=== PATIENT | female | born 1990 | race Caucasian/White ===

== ENCOUNTER → 2017-10-23 08:10 | Outpatient (CLI) | payer OTHER, MEDICAID, SELFPAY ==
--- NOTE | 2017-10-23 | DI.MRI.S_ITS ---
PROCEDURE: MR FOOT LT WO/W CON INDICATIONS: Left foot pain TECHNIQUE: Noncontrast sagittal T1 spin echo and T2 fast spin echo with fat saturation, long-axis T1 spin echo and T2 fast spin echo with fat saturation; short-axis T1 spin echo, proton density fast spin echo, and T2 fast spin echo with fat saturation through the forefoot. Post-contrast short axis, long axis, and sagittal T1 spin echo with fat saturation through the forefoot. COMPARISON: None. FINDINGS: Image quality: Excellent. Bones and joints: No suspicious osseous enhancement. No bone marrow contusions or metatarsal stress fractures. The sesamoid bones appear in expected positions, without internal edema. No metatarsophalangeal joint degeneration. No intraosseous lesions. Soft tissues: No suspicious soft tissue enhancement. The visualized plantar foot muscles demonstrate normal signal and bulk. Visualized flexor and extensor tendons appear intact, without tenosynovitis. The distal insertions of the peroneus brevis and longus tendons appear intact. The principal Lisfranc ligament appears intact. No soft tissue ganglion cysts or bursal fluid collections. Sagittal images demonstrate no evidence for plantar plate tears. IMPRESSION: Etiology of current symptoms is not found. No inflammation along the plantar fascia or plantar soft tissues elsewhere is seen. Marrow signal is normal, no sign of neuroma or ganglion cyst is found. Dictated by: Lm Chi M.D. on 10/23/2017 at 16:13 Approved by: Lm Chi M.D. on 10/23/2017 at 16:15
== END ==
PROVIDERS: PCP Nurse Practitioner Family; Visit Provider Specialist/Technologist Athletic Trainer
DX: M79.672 Pain in left foot (principal)
CPT/HCPCS: 73720; A9579

== ENCOUNTER → 2018-02-04 10:42 | Outpatient (CLI) | payer OTHER, MEDICAID, SELFPAY ==
[2018-02-04 11:23] LABS: Add Manual Diff / Slide Review NO; Basophils Percent Auto 0.2 % (0-2); Lymphocytes Percent Auto 32.9 % (25-40); Mean Corpuscular HGB Conc 33.3 % (30-36); Mean Corpuscular Hemoglobin 24.7 PG (26-34); Monocytes Percent Auto 5.3 % (3-14); Neutrophils Absolute Auto 3800 /uL (3000-5900); Neutrophils Percent Auto 61.6 % (50-75); Platelet Count 416 X10^3/uL (150-400); Red Blood Cell Count 4.47 X10^6/uL (4.0-5.2); Red Cell Distribution Width 15.2 % (11.6-14.8); White Blood Cell Count 6.2 X10^3/uL (4.5-11.0)
[2018-02-04 11:47] LABS: Iron 67 ug/dL (37-170)
[2018-02-04 12:01] LABS: Free T3, Triiodothyronine Free 3.92 pg/mL (2.77-5.27)
[2018-02-04 12:14] LABS: Thyroid Stimulating Hormone 0.28 uIU/mL (0.47-4.68)
[2018-02-04 18:22] LABS: Free T4, Direct Thyroxine 1.36 ng/dL (0.78-2.19)
[2018-02-05 09:03] LABS: Ferritin 8.8 ng/mL (6.27-137)
== END ==
PROVIDERS: PCP Internal Medicine; Visit Provider Internal Medicine
DX: R53.83 Other fatigue (principal); D64.9 Anemia, unspecified
CPT/HCPCS: 36415; 82728; 83540; 84439; 84443; 84481; 85025

== ENCOUNTER → 2019-09-05 10:58 | Outpatient (CLI) | payer OTHER, MEDICAID, SELFPAY ==
--- NOTE | 2019-09-05 | DI.US.S_ITS ---
LIMITED ULTRASOUND OF LEFT BREAST AND AXILLA: 09/05/2019 CLINICAL: Palpable left breast lump. No prior exams were available for comparison. Color flow and real-time ultrasound of the left breast 10-11 o'clock, and axilla regions were performed on the areas of interest. Razo scale images of the real-time examination were reviewed. There is a 3 cm x 1.6 cm x 2.6 cm oval mass with a circumscribed margin in the left breast at 10 o'clock posterior depth 7 cm from the nipple. This oval mass is hypoechoic with a well-defined boundary. This correlates as palpated. Color flow imaging demonstrates that there is no vascularity present. No enlarged lymph nodes were seen sonographically in the left axilla. IMPRESSION: SUSPICIOUS OF MALIGNANCY The 3 cm x 1.6 cm x 2.6 cm oval mass in the left breast resembles a fibroadenoma and is at a low suspicion for malignancy. An ultrasound guided biopsy is recommended. The findings were discussed with the patient at the conclusion of the study by Dr. Chi. This exam was interpreted at Station ID: [id number]. Electronically Signed By: Jamil martin/:09/05/2019 16:10:46 letter sent: Biopsy Required Ultrasound BI-RADS: 4a Low suspicion for malignancy
== END ==
PROVIDERS: PCP Family Medicine; Referring Provider Internal Medicine; Visit Provider Family Medicine
DX: R92.8 Other abnormal and inconclusive findings on diagnostic imaging of breast (principal); N63.22 Unspecified lump in the left breast, upper inner quadrant
CPT/HCPCS: 76642

== ENCOUNTER → 2019-09-15 08:37 | Outpatient (CLI) | payer OTHER, MEDICAID, SELFPAY ==
--- NOTE | 2019-09-15 | DI.US.S_ITS ---
ULTRASOUND GUIDED BIOPSY LEFT BREAST USING VACUUM DEVICE WITH MARKING DEVICE INSERTED AND POST ULTRASOUND IMAGIN09/15/2019 CLINICAL: Left breast mass. PATIENT CONSENT: Risks (minor bleeding, infection, vasovagal reaction and repeat procedure), benefits and alternatives were explained to the patient and written informed consent was obtained. Correlation is made to exams dated: 09/05/2019 [facility]. An ultrasound guided biopsy using real-time ultrasound was performed for the palpable 3 cm x 1.6 cm x 2.6 cm oval mass located in the left breast at 10 o'clock posterior depth 7 cm from the nipple. This was described on the previous ultrasound report. The skin was prepped in the usual manner. Local anesthetic was administered to the access site. A skin denilson was made in the breast. The abnormality was approached from the lateral aspect. A 13 gauge biopsy needle was placed adjacent to the abnormality under ultrasound guidance. Once the needle was documented to be in the correct location, eight specimens were obtained using the Mammotome biopsy system. A clip was inserted into the biopsy cavity. A sterile dressing was applied to the access site. Post procedure ultrasound imaging demonstrates the location device at the targeted area. The specimens were sent to the laboratory for pathological analysis. IMPRESSION: ULTRASOUND GUIDED BIOPSY BENIGN Ultrasound guided biopsy of the 3 cm x 1.6 cm x 2.6 cm mass in the left breast at 10 o'clock posterior depth 7 cm from the nipple was successful. Pathology indicates benign fibroadenoma (FA). Pathology results are concordant with imaging findings. Recommend returning to screening mammogram usually to commence at age 40 unless high risk. If the fibroadenoma is painful and uncomfortable surgical excision could be considered. This exam was interpreted at Station ID: [id number]. Jaron venegas,slc/:09/17/2019 15:21:32
--- NOTE | 2019-09-15 | PATH_ITS ---
[facility] Accession Number: [id number] . 01 Material submitted: . breast - LEFT BREAST 10:30 MASS . 01 Clinical history: . LEFT BREAST MASS . 02 Diagnosis: Left Breast Mass, 10:30 o'clock, Needle Core Biopsies: Fibroepithelial lesion, consistent with fibroadenoma. Negative for in situ or invasive carcinoma. MRV 09/16/2019 1326 Local . 02 Electronically signed: . Rodríguez Shah MD, PhD, Pathologist NPI- [id number] . 01 Gross description: . Received one formalin-filled container, labeled with the patient's name and designated left breast 10:30 mass. The specimen is received with a plastic filter in container, sample loose in container and consists of multiple pink-stewart to yellow-hunt, cylindrical-shaped portions of tissue which range in size from 0.2 x 0.2 x 0.2 cm to 0.7 x 0.2 x 0.2 cm. The specimen filtered, wrapped, and entirely submitted in one cassette. Collection date per requisition: 09/15/19. No collection time per container. Possible collection time per requisition: 09. Possible total fixation time: Approximately 11 hours. ([id number]) /Ethan 09/16/2019 0208 Local . 02 Pathologist provided ICD-10: D24.2 . 02 CPT . 597805 Performed at: 01 [facility] [address] [facility], [place], [place] [id number] MD Jamil Jeffers MD Phone: [phone] Performed at: 02 [facility] [address] [place], [place] [id number] MD Carmen Estrella MD Phone: [phone]
== END ==
PROVIDERS: PCP Family Medicine; Referring Provider Internal Medicine; Visit Provider Internal Medicine
DX: D24.2 Benign neoplasm of left breast (principal)
CPT/HCPCS: 19083

== ENCOUNTER → 2022-09-20 06:39 | Outpatient (CLI) | payer OTHER, MEDICAID, SELFPAY ==
[2022-09-20 08:26] LABS: Alanine Aminotransferase 19 IU/L (<35); Albumin 3.9 g/dL (3.5-5.0); Albumin Globulin Ratio 1.3 (1.0-2.8); Alkaline Phosphatase 81 U/L (38-126); Aspartate Aminotransferase 19 IU/L (14-36); BUN Creatinine Ratio 16.4 (6-22); Bilirubin Total 0.2 mg/dL (0.2-1.3); Blood Urea Nitrogen 9 mg/dL (7-17); Calcium 8.7 mg/dL (8.4-10.2); Carbon Dioxide 27 mmol/L (22-32); Chloride 103 mmol/L (98-107); Cholesterol 196 mg/dL (140-199); Estimated Glomerular Filt Rate > 60 mL/min (>60); Globulin 3.1 g/dL (1.7-4.1); Glucose 86 mg/dL (70-100); HDL Cholesterol 39 mg/dL (40-60); HEMOLYSIS < 15 (0-50); LDL Cholesterol Calculated 137 mg/dL (<100); Lipase 149 U/L (23-300); Potassium 3.9 mmol/L (3.4-5.1); Sodium 138 mmol/L (137-145); Triglycerides 99 mg/dL (35-150)
[2022-09-20 08:29] LABS: Add Manual Diff / Slide Review NO; Basophils Absolute Auto 0 /uL (0-100); Eosinophils Absolute Auto 0 /uL (0-450); Hematocrit 28.2 % (36-46); Hemoglobin 9.1 g/dL (12.0-16.0); Lymphocytes Absolute Auto 2400 /uL (1100-4500); Lymphocytes Percent Auto 34.7 % (25-40); Mean Corpuscular HGB Conc 32.4 % (30-36); Mean Corpuscular Hemoglobin 21.2 PG (26-34); Mean Corpuscular Volume 65.3 fL (80-100); Monocytes Absolute Auto 400 /uL (0-900); Monocytes Percent Auto 5.4 % (3-14); Neutrophils Absolute Auto 4100 /uL (1500-7000); Neutrophils Percent Auto 59.9 % (50-75); Platelet Count 421 X10^3/uL (150-400); Red Blood Cell Count 4.32 X10^6/uL (4.0-5.2); Red Cell Distribution Width 16.6 % (11.6-14.8); White Blood Cell Count 6.9 X10^3/uL (4.5-11.0)
[2022-09-20 08:50] LABS: Microcytosis 2+; Ovalocytes 1+
[2022-09-20 08:53] LABS: TSH w/ Reflex to FT4 1.51 uIU/mL (0.47-4.68)
[2022-09-21 15:51] LABS: x Labcorp Estim. Avg Glu (eAG) 123 mg/dL (.); x Labcorp Hemoglobin A1c 5.9 % (4.8-5.6)
== END ==
PROVIDERS: PCP Family Medicine; Referring Provider Family Medicine; Visit Provider Family Medicine
DX: E03.9 Hypothyroidism, unspecified (principal); E66.9 Obesity, unspecified; F32.A Depression, unspecified; F90.9 Attention-deficit hyperactivity disorder, unspecified type
CPT/HCPCS: 36415; 80053; 80061; 83036; 83690; 84443; 85025

== ENCOUNTER → 2022-10-23 12:07 | Outpatient (CLI) | payer OTHER, MEDICAID, SELFPAY ==
[2022-10-23 13:23] LABS: HEMOLYSIS < 15 (0-50); Iron 24 ug/dL (37-170)
[2022-10-23 13:31] LABS: Transferrin 336 mg/dL (206-381)
[2022-10-23 13:41] LABS: Percent Iron Saturation 5 % (15-50); Total Iron Binding Capacity 464 ug/dL (265-497)
[2022-10-23 13:51] LABS: Ferritin 10 ng/mL (6-137)
[2022-10-23 19:10] LABS: UR Morphine/Opiate cutoff 300 Negative (Negative); Ur Creatinine Normal (Normal); Ur Specific Gravity Normal (Normal); Urine Amphetamines Negative (Negative); Urine Barbiturates Negative (Negative); Urine Benzodiazepines Negative (Negative); Urine Cocaine Negative (Negative); Urine MDMA Negative (Negative); Urine Methadone Negative (Negative); Urine Methamphetamines Negative (Negative); Urine Oxycodone Negative (Negative); Urine Phencyclidine Negative (Negative); Urine Tetrahydrocannabinol Negative (Negative); Urine Tricyclic Antidepressant Negative (Negative); Urine pH Normal (Normal)
== END ==
PROVIDERS: PCP Family Medicine; Referring Provider Family Medicine; Visit Provider Family Medicine
DX: D64.9 Anemia, unspecified (principal); F90.9 Attention-deficit hyperactivity disorder, unspecified type
CPT/HCPCS: 36415; 80305; 82728; 83540; 83550

== ENCOUNTER → 2023-01-17 10:30 | Oncology outpatient (ONC) | payer OTHER, MEDICAID, SELFPAY ==
[2022-12-06 14:15] VITALS: BP 121/70; PULSE 87; RESP 16; TEMP 36.4
[2022-12-06] MEDS: IRON SUCROSE 300 MG in SODIUM CHLORIDE 0.9% 250 ML 132.5 MG IV (14:17)
--- NOTE | 2022-12-06 15:02 | PC.NURSE ---
ORDER CLARIFICATION This RN spoke w/ JO-ANN Calle from Dr. Patel's office. Per JO-ANN Calle: Pt is to receive 300mg Venofer in 250mls administered over 2 hours, once every 3 weeks, for a total of 3 doses.
[2022-12-27 10:46] VITALS: BP 109/60; PULSE 79; RESP 16; TEMP 36.4; O2SAT 99
[2022-12-27] MEDS: IRON SUCROSE 300 MG in SODIUM CHLORIDE 0.9% 250 ML 132.5 MG IV (11:06)
[2023-01-17 10:21] VITALS: BP 115/61; PULSE 97; RESP 16; TEMP 36.6; O2SAT 100
[2023-01-17] MEDS: IRON SUCROSE 300 MG in SODIUM CHLORIDE 0.9% 250 ML 132.5 MG IV (11:08)
== END ==
PROVIDERS: PCP Family Medicine; Referring Provider Family Medicine; Visit Provider Family Medicine
DX: D50.9 Iron deficiency anemia, unspecified (principal); K90.89 Other intestinal malabsorption
CPT/HCPCS: 96365; 96366; J1756

== ENCOUNTER → 2023-02-19 14:07 | Outpatient (CLI) | payer OTHER, MEDICAID, SELFPAY ==
[2023-02-19 15:59] LABS: Add Manual Diff / Slide Review NO; Basophils Absolute Auto 0 /uL (0-100); Basophils Percent Auto 0.1 % (0-2); Eosinophils Absolute Auto 0 /uL (0-450); Eosinophils Percent Auto 0.1 % (2-4); Hematocrit 37.1 % (36-46); Hemoglobin 12.4 g/dL (12.0-16.0); Lymphocytes Absolute Auto 2500 /uL (1100-4500); Lymphocytes Percent Auto 28.3 % (25-40); Mean Corpuscular HGB Conc 33.4 % (30-36); Mean Corpuscular Hemoglobin 26.5 PG (26-34); Mean Corpuscular Volume 79.4 fL (80-100); Monocytes Absolute Auto 400 /uL (0-900); Monocytes Percent Auto 4.4 % (3-14); Neutrophils Absolute Auto 6000 /uL (1500-7000); Neutrophils Percent Auto 67.1 % (50-75); Platelet Count 352 X10^3/uL (150-400); Red Blood Cell Count 4.67 X10^6/uL (4.0-5.2); Red Cell Distribution Width 24.3 % (11.6-14.8); White Blood Cell Count 8.9 X10^3/uL (4.5-11.0)
[2023-02-19 16:14] LABS: Microcytosis 2+
[2023-02-19 16:36] LABS: TSH w/ Reflex to FT4 1.95 uIU/mL (0.47-4.68)
== END ==
PROVIDERS: PCP Family Medicine; Referring Provider Family Medicine; Visit Provider Family Medicine
DX: D50.9 Iron deficiency anemia, unspecified (principal); E03.9 Hypothyroidism, unspecified; N94.6 Dysmenorrhea, unspecified
CPT/HCPCS: 36415; 84443; 85025

== ENCOUNTER 2023-02-27 12:00 | Day surgery (SDC) | payer OTHER, MEDICAID, SELFPAY ==
[2023-02-27 12:21] VITALS: BMI 35.5
[2023-02-27 12:34] VITALS: BP 109/67; PULSE 85; RESP 20; TEMP 37.1; O2SAT 98
[2023-02-27] MEDS: LACTATED RINGERS 1,000 ML 150 ML IV (12:36)
--- NOTE | 2023-02-27 13:27 | PM.HP.1 ---
History of Present Illness History of Present Illness Date Patient Seen: 02/27/23 Time Patient Seen: 13:27 Chief complaint: EGD & Colonoscopy w/poss bx's Narrative: 32-year-old woman with a history of iron-deficiency anemia here for diagnostic EGD and colonoscopy. Please refer to the H and P from December 2022 for further detail. No interval change in health. PFS Medical History (Updated 01/11/23 @ 09:21 by Sun Patel DO) Dysmenorrhea Menorrhagia Abdominal bloating IFG (impaired fasting glucose) Microcytic anemia Obesity (BMI 35.0-39.9 without comorbidity) Depression Hypothyroidism Social History (Updated 12/21/22 @ 14:46 by Linda Steve MA) marital status: unmarried,single household members: none lives independently: Yes occupational status: employed Smoking Status: Never smoker alcohol intake: never substance use type: does not use Meds Home Medications and Allergies Home Medications Medication Instructions Recorded Confirmed Type levothyroxine 137 mcg capsule 137 mcg PO DAILY #90 caps 10/09/22 12/21/22 Rx venlafaxine 150 mg 150 mg PO DAILY #90 caps 10/09/22 12/21/22 Rx capsule,extended release 24 hr (Effexor XR) iron sucrose 100 mg iron/5 mL See Rx Instructions IV .COMPLEX 11/22/22 12/21/22 Rx intravenous solution (Venofer) #15 mL peg 3350-electrolytes 236 240 ml PO Q10M #4,000 mL 12/21/22 Rx gram-22.74 gram-6.74 gram-5.86 gram solution (Golytely) norethindrone acetate 1.5 1 tab PO DAILY #63 tabs 01/11/23 01/11/23 Rx mg-ethinyl estradiol 30 mcg tablet (Jama) methylphenidate HCl 10 mg biphasic 10 mg PO DAILY 30 days #30 caps 02/21/23 02/21/23 Rx 50-50 capsule,extended release (Ritalin LA) norethindrone acetate 1.5 1 tab PO DAILY 02/27/23 02/27/23 History mg-ethinyl estradiol 30 mcg tablet (Juliana) Allergies Allergy/AdvReac Type Severity Reaction Status Date / Time drospirenone [From IGLESIA (28)] Allergy Unknown Unverified 12/21/22 14:14 ethinyl estradiol Allergy Unknown Unverified 12/21/22 14:14 [From IGLESIA (28)] Exam Vital Signs (past 8 hours): - 02/27/23 12:34 Temperature 98.8 F Pulse Rate 85 Respiratory Rate 20 Blood Pressure 109/67 Pulse Oximetry 98 Oxygen Delivery Method Room Air Oxygen Delivery Method Room Air Narrative Exam Narrative: General adult woman alert oriented no acute distress Assessment & Plan Assessment and plan (1) Microcytic anemia: Status: Acute Assessment & Plan narrative: 32-year-old woman with a history of microcytic anemia here for diagnostic esophagoduodenoscopy and colonoscopy. Overview of the procedures discussed. Procedural risks including bleeding, missed diagnosis, intestinal injury discussed. Questions have been answered she is in agreement with this plan. She provides her written and verbal consent to proceed.
[2023-02-27 14:08] VITALS: BP 100/70; PULSE 89; RESP 17; TEMP 36.3; O2SAT 96
--- NOTE | 2023-02-27 14:10 | PM.OP.EC ---
Operative Date/Time/Diagnoses Date of procedure: 02/27/23 Time of procedure: 14:10 Pre-op diagnosis: Anemia Post-op diagnosis: same Procedure & Clinicians Study performed: Esophagoduodenoscopy and colonoscopy Same procedure as scheduled: Yes Indications: Microcytic anemia of unknown etiology Surgeon: Tr Reed Procedure Notes Procedure in detail: The history and physical was performed/updated and the patient is ASA class is 2. The procedure was discussed in detail with the patient. Potential risks complications including infection, bleeding, missed diagnosis, perforation, need for surgery, and were explained. Their questions were answered and informed consent was obtained. Patient placed in left lateral decubitus position. Time out was performed. Procedural sedation was administered by Anesthesia. A bite block was placed. the scope was inserted into the mouth and advanced through the esophagus and into the stomach. The stomach was without masses, ulcers or gastritis. The pylorus was intubated and the duodenum was normal to the 2nd portion. The scope was withdrawn into the esophagus the Z line was seen at 35 cm from the incisions. There was no Mckeon's esophagitis, esophageal masses or strictures. Stomach was desufflated and scope removed. Examination began with a thorough inspection of the perianal area there was no evidence of fissures, fistulae, external hemorrhoids or cutaneous malignancy. The colonoscopy scope was then placed into the anal canal and was advanced to the cecum, which was identified by the ileocecal valve, the appendiceal orifice and the confluence of the taenia. The scope was then slowly withdrawn examining colon thoroughly in all directions, irrigating it of any residual stool. Unremarkable upper and lower endoscopy. No masses polyps or inflammation. No active hemorrhage or evidence of recent bleeding. The patient tolerated the procedure well. They will be discharged once criteria are met. The prep was of good/excellent quality. The withdrawl time was 7 minutes. Specimen(s): none sent Impression: Normal esophagoduodenoscopy and colonoscopy Post-procedure Disposition: same day surgery
[2023-02-27 14:11] VITALS: BP 113/86; PULSE 95; RESP 17; O2SAT 91
[2023-02-27 14:16] VITALS: BP 116/74; PULSE 97; RESP 20; TEMP 36.8; O2SAT 98
[2023-02-27] MEDS: ACETAMINOPHEN 325 MG TABLET 650 MG PO (14:24)
[2023-02-27 14:25] VITALS: BP 124/93; PULSE 90; RESP 14; TEMP 36.6; O2SAT 99
== END 2023-02-27 14:45 | disposition home or self-care (01) ==
PROVIDERS: PCP Family Medicine; Referring Provider Surgery; Visit Provider Surgery
PROC: 0DJ08ZZ Inspection of Upper Intestinal Tract, Via Natural or Artificial Opening Endoscopic (ICD-10-PCS; CPT 43235; principal; 2023-02-27 13:15)
PROC: 0DJD8ZZ Inspection of Lower Intestinal Tract, Via Natural or Artificial Opening Endoscopic (ICD-10-PCS; CPT 45378; 2023-02-27 13:15)
DX: D50.9 Iron deficiency anemia, unspecified (principal)
CPT/HCPCS: 45378; 43235; J2704

== ENCOUNTER → 2023-04-09 16:17 | Outpatient (CLI) | payer OTHER, MEDICAID, SELFPAY ==
[2023-04-09 16:54] LABS: Add Manual Diff / Slide Review NO; Basophils Absolute Auto 100 /uL (0-100); Basophils Percent Auto 0.6 % (0-2); Eosinophils Absolute Auto 0 /uL (0-450); Eosinophils Percent Auto 0.2 % (2-4); Hemoglobin 14.3 g/dL (12.0-16.0); Lymphocytes Absolute Auto 3300 /uL (1100-4500); Lymphocytes Percent Auto 34.3 % (25-40); Mean Corpuscular Hemoglobin 28.5 PG (26-34); Mean Corpuscular Volume 83.8 fL (80-100); Monocytes Absolute Auto 500 /uL (0-900); Monocytes Percent Auto 4.8 % (3-14); Neutrophils Absolute Auto 5800 /uL (1500-7000); Neutrophils Percent Auto 60.1 % (50-75); Platelet Count 402 X10^3/uL (150-400); Red Blood Cell Count 5.02 X10^6/uL (4.0-5.2); Red Cell Distribution Width 15.8 % (11.6-14.8); White Blood Cell Count 9.7 X10^3/uL (4.5-11.0)
[2023-04-09 16:58] LABS: Hemoglobin A1C% w Est Avg Glu 5.8 % (4.0-6.0)
[2023-04-09 16:59] LABS: Alanine Aminotransferase 24 IU/L (<35); Albumin 4.5 g/dL (3.5-5.0); Albumin Globulin Ratio 1.1 (1.0-2.8); Alkaline Phosphatase 63 U/L (38-126); Aspartate Aminotransferase 27 IU/L (14-36); BUN Creatinine Ratio 25.4 (6-22); Bilirubin Total 0.6 mg/dL (0.2-1.3); Blood Urea Nitrogen 15 mg/dL (7-17); Calcium 10.3 mg/dL (8.4-10.2); Carbon Dioxide 26 mmol/L (22-32); Chloride 99 mmol/L (98-107); Estimated Glomerular Filt Rate > 60 mL/min (>60); Glucose 94 mg/dL (70-100); Potassium 3.7 mmol/L (3.4-5.1); Sodium 135 mmol/L (137-145); Total Protein 8.5 g/dL (6.3-8.2)
[2023-04-09 17:01] LABS: HEMOLYSIS 62 (0-50)
[2023-04-09 17:01] LABS: Appearance Urine UA CLEAR; Bilirubin Urine UA NEGATIVE (NEGATIVE); Color Urine UA YELLOW; Glucose Urine UA NEGATIVE (Negative); Ketones Urine UA NEGATIVE (NEGATIVE); Leukocyte Esterase Urine UA NEGATIVE (NEGATIVE); Nitrite Urine UA NEGATIVE (Negative); Occult Blood Urine UA NEGATIVE (Negative); Protein Urine UA NEGATIVE (Negative); Specific Gravity Urine UA 1.015 (1.000-1.035); Urobilinogen Urine UA 0.2 E.U./dL (0.2)
[2023-04-09 17:03] LABS: pH Urine UA 6.5 (4.5-8.0)
[2023-04-09 18:53] LABS: Bacteria Urine Occasional (0-1); Culture Indicated Urine Cult Not Indicated; RBC Urine 0-1/HPF (0-5/HPF); Squamous Epithelial Cell Urine 1-5 /HPF (0-5/HPF); WBC Urine 0-1/HPF (0-5/HPF)
== END ==
PROVIDERS: PCP Family Medicine; Referring Provider Family Medicine; Visit Provider Family Medicine
DX: R73.01 Impaired fasting glucose (principal); R10.9 Unspecified abdominal pain
CPT/HCPCS: 36415; 80053; 81001; 83036; 85025

== ENCOUNTER → 2023-05-01 08:43 | Outpatient (CLI) | payer OTHER, MEDICAID, SELFPAY ==
--- NOTE | 2023-05-01 10:10 | DI.CT.S_ITS ---
PROCEDURE: CT ABDOMEN PELVIS W CON INDICATIONS: periumb pain. ? hernia TECHNIQUE: After the administration of oral and intravenous contrast, axial sections were acquired from the lung bases to the pubic symphysis. Coronal and sagittal reformats were performed. For radiation dose reduction, the following was used: automated exposure control, adjustment of mA and/or kV according to patient size. COMPARISON:None. FINDINGS: Image quality: Excellent. Lung bases: There is a 5 millimeter right lower lobe nodule (8/5).. Heart: No significant findings. ABDOMEN: Liver: No solid mass. Gallbladder: No radiopaque gallstones or wall thickening. Biliary ducts: No biliary dilation. Pancreas: No ductal dilation. Spleen: Size is within normal limits. Splenule is noted. Adrenal Glands: No adrenal nodules. Kidneys and Ureters: No hydronephrosis. No solid mass. No complex renal cystic lesion which requires follow up. Stomach and Bowel: Normal colonic caliber, without significant wall thickening. Normal appendix. Peritoneum: No abnormal intraperitoneal fluid. No free air. Ventral Wall: No hernia. Abdominal Nodes: No retroperitoneal or mesenteric adenopathy by size criteria. Vessels: Aorta and inferior vena cava are normal in size. PELVIS: Pelvic Organs: Possibly uterine fibroid. Bladder: Unremarkable. Pelvic Nodes: No enlarged lymph nodes. Miscellaneous: No inguinal hernias are seen. Bones: Unremarkable. IMPRESSION: 1. No umbilical hernia. No cause for patient's pain is identified. 2. There is a 5 millimeter right lower lobe pulmonary nodule. Given patient's age, this is favored to be benign. Per Fleischner criteria, no follow-up is necessary if patient is low risk, [place] follow-up chest CT if patient is high risk. 3. Hypodensity within the uterine myometrium abutting the endometrium, may represent a submucosal or intramural fibroid. If clinically indicated, repeat pelvic ultrasound could be obtained. Dictated by: Tree Rutledge M.D. on 05/01/2023 at 10:33 Approved by: Tree Rutledge M.D. on 05/01/2023 at 10:40
== END ==
PROVIDERS: PCP Family Medicine; Referring Provider Family Medicine; Visit Provider Family Medicine
DX: R10.33 Periumbilical pain (principal); R91.1 Solitary pulmonary nodule
CPT/HCPCS: 74177; Q9967

== ENCOUNTER 2023-09-03 08:26 | Day surgery (SDC) | payer OTHER, MEDICAID, SELFPAY ==
[2023-08-21 08:38] VITALS: BMI 38.8
[2023-09-03] VITALS (8 sets, daily range): BP systolic 98–123; BP diastolic 60–80; PULSE 63–88; RESP 14–23; TEMP 36.2–36.4; O2SAT 98–100; BMI 37.6
[2023-09-03] MEDS: ACETAMINOPHEN 325 MG TABLET 975 MG PO (08:58)
[2023-09-03] MEDS: LACTATED RINGERS 1,000 ML 42 ML IV ×2 (08:59→11:43)
--- NOTE | 2023-09-03 10:11 | PM.PREOP ---
Pre-operative Note Interval Note History & Physical reviewed/Exam performed by Physician: Yes Changes to H&P: No H&P completed within 30 days and has changed as indicated here:: 08/14/23
--- NOTE | 2023-09-03 10:21 | SUR.OPER ---
Lithotomy on padded OR bed, head on pillow, arms secured on padded arm boards at <90 degrees abduction. Legs secured in padded yellow fins stirrups.
--- NOTE | 2023-09-03 10:56 | SUR.OPER ---
IUD FROM DR ROGEL'S OFFICE JOSE TOLLIVER [id number] EXP 07/16
[2023-09-03] MEDS: KETOROLAC 30 MG/ML VIAL IV (11:12)
--- NOTE | 2023-09-03 11:38 | SUR.PHASEII ---
1138 hrs: Pt states not yet feeling well enough to go home yet.
--- NOTE | 2023-09-03 11:49 | SUR.PHASEII ---
Patient reported dizziness upon sitting up. IV fluids restarted.
--- NOTE | 2023-09-03 13:32 | PM.OP.1 ---
Operative Date/Time/Diagnoses Date of procedure: 09/03/23 Time of procedure: 10:30 Pre-op diagnosis: AUB Post-op diagnosis: same Procedure & Clinicians Procedure: EUA, placement of IUD Same procedure as scheduled: Yes Indications: Intolerance to office exam, desired placement of LNG-IUD Surgeon: Adriana Aden Click Yes if Unassisted: No Anesthesia Type: General Operative Notes Findings: normal external female genitalia diffuse lichen sclerosus chronicus without lesion urethral meatus wnl vagina and cervix visually wnl, uterus sounded to 4.5cm Closure Type: not applicable Specimen(s): none sent Prosthetic devices, grafts, tissues, transplants, or devices: Kyleena IUD: SN [id number] Exp Lot [id number] Estimated Blood Loss (mL): 0 Blood products transfused: none Procedure in detail: Patient was taken to the operating room and transferred to OR table in supine position. Patient had anesthesia introduced via MAC. Patient was then placed in dorsal lithotomy position and her legs were put in Gigi stirrups. A time out was performed. A sterile speculum was placed in the vagina and the cervix was visualized. The cervix was swabbed serially with betadine x3. Anterior cervix was grasped using a single tooth tenaculum and under gentle traction uterus sounded to 4.5cm. Kyleena IUD (S/N [id number] Exp Lot [id number]) obtained from office supply was placed per shotgun shell reprinting unit operator instructions, strings trimmed to 2cm. Tenaculum removed and hemstasis noted. Speculum removed. The patient had her legs taken out of stirrups and was transferred to PACU in good condition. Complications: none Post-operative Condition: stable Disposition: PACU Plan for aftercare: dc to home
== END 2023-09-03 12:17 | disposition home or self-care (01) ==
PROVIDERS: PCP Family Medicine; Referring Provider Obstetrics & Gynecology; Visit Provider Obstetrics & Gynecology
PROC: (CPT 58300; principal; 2023-09-03 09:45)
DX: Z30.430 Encounter for insertion of intrauterine contraceptive device (principal); N90.4 Leukoplakia of vulva
CPT/HCPCS: 58300; C1776; J1100; J1885; J2250; J2405; J2704; J3010; J7296

== ENCOUNTER → 2023-11-13 11:41 | Outpatient (CLI) | payer OTHER, MEDICAID, SELFPAY ==
[2023-11-13 13:09] LABS: Hemoglobin A1C% w Est Avg Glu 5.1 % (4.0-6.0)
[2023-11-13 13:18] LABS: Blood Urea Nitrogen 12 mg/dL (7-17); Calcium 9.3 mg/dL (8.4-10.2); Carbon Dioxide 26 mmol/L (22-32); Chloride 102 mmol/L (98-107); Estimated Glomerular Filt Rate > 60 mL/min (>60); Glucose 96 mg/dL (70-100); HEMOLYSIS < 15 (0-50); Sodium 137 mmol/L (137-145)
[2023-11-13 13:47] LABS: TSH w/ Reflex to FT4 4.81 uIU/mL (0.47-4.68)
[2023-11-13 17:30] LABS: Free T4, Direct Thyroxine 1.05 ng/dL (0.78-2.19)
== END ==
PROVIDERS: PCP Family Medicine; Referring Provider Family Medicine; Visit Provider Family Medicine
DX: E03.9 Hypothyroidism, unspecified (principal); R73.01 Impaired fasting glucose; E83.52 Hypercalcemia
CPT/HCPCS: 36415; 80048; 83036; 84439; 84443

== ENCOUNTER 2024-05-01 11:39 | Emergency (ER) | payer OTHER, MEDICAID, SELFPAY ==
[2024-05-01 11:43] VITALS: BP 139/81; PULSE 94; RESP 20; TEMP 37.2; O2SAT 98; BMI 37.6
[2024-05-01 12:11] LABS: Appearance Urine UA CLEAR; Bilirubin Urine UA NEGATIVE (NEGATIVE); Color Urine UA YELLOW; Glucose Urine UA NEGATIVE (Negative); Ketones Urine UA NEGATIVE (NEGATIVE); Leukocyte Esterase Urine UA NEGATIVE (NEGATIVE); Nitrite Urine UA NEGATIVE (Negative); Occult Blood Urine UA 2+ (Negative); Protein Urine UA NEGATIVE (Negative); Specific Gravity Urine UA <=1.005 (1.000-1.035)
[2024-05-01 12:15] LABS: Add Manual Diff / Slide Review NO; Basophils Absolute Auto 0 /uL (0-100); Basophils Percent Auto 0.2 % (0-2); Eosinophils Absolute Auto 0 /uL (0-450); Hematocrit 39.1 % (36-46); Hemoglobin 13.1 g/dL (12.0-16.0); Lymphocytes Absolute Auto 2500 /uL (1100-4500); Lymphocytes Percent Auto 25.7 % (25-40); Mean Corpuscular HGB Conc 33.6 % (30-36); Mean Corpuscular Hemoglobin 27.7 PG (26-34); Mean Corpuscular Volume 82.3 fL (80-100); Monocytes Absolute Auto 400 /uL (0-900); Monocytes Percent Auto 3.8 % (3-14); Neutrophils Absolute Auto 6900 /uL (1500-7000); Neutrophils Percent Auto 70.3 % (50-75); Platelet Count 498 X10^3/uL (150-400); Red Blood Cell Count 4.75 X10^6/uL (4.0-5.2); Red Cell Distribution Width 14.6 % (11.6-14.8); White Blood Cell Count 9.8 X10^3/uL (4.5-11.0)
[2024-05-01 12:16] LABS: Ur Creatinine Normal (Normal); Ur Specific Gravity Normal (Normal); Urine Amphetamines Negative (Negative); Urine Barbiturates Negative (Negative); Urine Benzodiazepines Negative (Negative); Urine Cocaine Negative (Negative); Urine MDMA Negative (Negative); Urine Methadone Negative (Negative); Urine Methamphetamines Negative (Negative); Urine Opiates Negative (Negative); Urine Oxycodone Negative (Negative); Urine Phencyclidine Negative (Negative); Urine THC Negative (Negative); Urine Tricyclic Antidepressant Negative (Negative); Urine pH Normal (Normal)
[2024-05-01 12:17] LABS: Urine Volume 10mL (spun)
[2024-05-01 12:19] LABS: RBC Urine 1-5/HPF (0-5/HPF); Squamous Epithelial Cell Urine 1-5 /HPF (0-5/HPF); WBC Urine 0-1/HPF (0-5/HPF)
[2024-05-01 12:20] LABS: Bacteria Urine Few (2-10); Culture Indicated Urine Cult Not Indicated
--- NOTE | 2024-05-01 12:23 | ED_ITS ---
HPI - Psych General Chief Complaint: Psychiatric Symptoms Stated Complaint: SI Time Seen by Provider: 05/01/24 11:53 Source: patient and family Mode of arrival: Ambulatory History of Present Illness HPI Narrative: 33-year-old patient here for evaluation of suicidal ideation. Patient has a diagnosis of generalized anxiety disorder, depression and ADHD. Is on medications for these prescribed by the primary provider. Has a initial appointment with a new mental health provider in approximately 1 week. Last evening started to have increasing thoughts of suicide to the point where patient thinks that she would have gone to the [place] with a knife in order to kill herself. She currently states that these suicidal thoughts have improved but not completely resolved. She was had suicidal thoughts in the past but last evening were more intense than what she was ever had. She actually did not tried to hurt herself. She denies any other associated symptoms. She states she has been taking her medications as directed. Patient is seeking inpatient treatment. Related Data Home Medications Medication Instructions Recorded Confirmed levonorgestrel 17.5 mcg/24 hr (up intrauterine 04/04/24 04/04/24 to 5 yrs) 19.5mg intrauterine device (Kyleena) Previous Rx's Medication Instructions Recorded venlafaxine 150 mg 150 mg PO DAILY #90 caps 11/13/23 capsule,extended release 24 hr (Effexor XR) venlafaxine 75 mg capsule,extended 75 mg PO DAILY #90 caps 11/13/23 release 24 hr (Effexor XR) levothyroxine 137 mcg tablet 137 mcg PO DAILY #90 caps 11/14/23 methylphenidate HCl 18 mg 18 mg PO DAILY #30 tabs 12/25/23 tablet,extended release 24 hr (Concerta) methylphenidate HCl 18 mg 18 mg PO DAILY #30 tabs 12/25/23 tablet,extended release 24 hr (Concerta) methylphenidate HCl 18 mg 18 mg PO DAILY #30 tabs 12/25/23 tablet,extended release 24 hr (Concerta) hydroxyzine HCl 10 mg tablet 10 mg PO QID PRN anxiety #120 tabs 02/22/24 metformin 500 mg tablet,extended 500 mg PO DAILY #60 tabs 02/29/24 release 24 hr aripiprazole 2 mg tablet (Abilify) 2 mg PO DAILY #30 tabs 04/04/24 Allergies Allergy/AdvReac Type Severity Reaction Status Date / Time drospirenone [From IGLESIA (28)] Allergy Unknown Verified 03/24/24 08:52 ethinyl estradiol Allergy Unknown Verified 03/24/24 08:52 [From IGLESIA (28)] Review of Systems Review of Systems ROS Unobtainable: All systems reviewed & are unremarkable except as noted in HPI and below Patient History Medical History GHULAM (generalized anxiety disorder) Major depression, recurrent IUD check up Abnormal uterine bleeding (AUB) Pulmonary nodule Dysmenorrhea Menorrhagia Abdominal bloating IFG (impaired fasting glucose) Microcytic anemia Obesity (BMI 35.0-39.9 without comorbidity) Depression Hypothyroidism Surgical History (Updated 08/21/23 @ 08:42 by Christine Bach RN) Hx of colonoscopy (02/27/23) Social History marital status: unmarried,single household members: friend(s) and none lives independently: Yes occupational status: employed Smoking Status: Never smoker alcohol intake: never substance use type: does not use Smoking Status: Never smoker Exam Initial Vital Signs Initial Vital Signs: Vital Signs Temperature 98.9 F 05/01/24 11:43 Pulse Rate 94 H 05/01/24 11:43 Respiratory Rate 20 05/01/24 11:43 Blood Pressure 139/81 05/01/24 11:43 Pulse Oximetry 98 05/01/24 11:43 Oxygen Delivery Method Room Air 05/01/24 11:43 Const General: cooperative, comfortable and No ill appearing HENMT Head: normal to inspection and normocephalic Resp Effort & Inspection: normal respiratory effort Cardio Rate: regular rate Skin General: no rashes or lesions noted Neuro General: patient alert, patient awake and moves all extremities Extrem General: normal to inspection and capillary refill normal Course Orders Ordered: ED Orders 05/01/24 11:52 Consult to PET STYLIST - Electric Motor Tester Stat 05/01/24 12:00 COVID19 -Nasal RAPID Stat Urinalysis and Microscopic Stat Urine Drug Screen, Rapid Stat 05/01/24 12:06 Complete Blood Count AUTO DIFF Stat Comprehensive Metabolic Panel Stat Ethanol (ETOH) Stat Lipase Stat Test Serum,Qual Stat Thyroid Stimulating Hormone Stat Vital Signs Vital signs: Vital Signs - 8 hr 05/01/24 11:43 05/01/24 14:56 Temperature 98.9 F 98.4 F Pulse Rate 94 H 101 H Respiratory Rate 20 16 Blood Pressure 139/81 128/72 Pulse Oximetry 98 98 Oxygen Delivery Method Room Air Room Air MDM - Psych Lab Data 05/01/24 12:06 05/01/24 12:06 Labs: Lab Results 05/01/24 05/01/24 05/01/24 Range/Units 12:00 12:00 12:06 WBC 9.8 (4.5-11.0) X10^3/uL RBC 4.75 (4.0-5.2) X10^6/uL Hgb 13.1 (12.0-16.0) g/dL Hct 39.1 (36-46) % MCV 82.3 (80-100) fL MCH 27.7 (26-34) PG MCHC 33.6 (30-36) % RDW 14.6 (11.6-14.8) % Plt Count 498 H (150-400) X10^3/uL Neut % (Auto) 70.3 (50-75) % Lymph % (Auto) 25.7 (25-40) % [place] % (Auto) 3.8 (3-14) % Eos % (Auto) 0.0 L (2-4) % Baso % (Auto) 0.2 (0-2) % Neut # (Auto) 6900 (6056-6863) /uL Lymph # (Auto) 2500 (0333-9493) /uL [place] # (Auto) 400 (0-900) /uL Eos # (Auto) 0 (0-450) /uL Baso # (Auto) 0 (0-100) /uL Sodium 139 (137-145) mmol/L Potassium 3.7 (3.4-5.1) mmol/L Chloride 106 (98-107) mmol/L Carbon Dioxide 23 (22-32) mmol/L BUN 9 (7-17) mg/dL Creatinine 0.64 (0.52-1.04) mg/dL Estimated GFR > 60 (>60) mL/min BUN/Creatinine Ratio 14.1 (6-22) Glucose 113 H (70-100) mg/dL Calcium 9.3 (8.4-10.2) mg/dL Total Bilirubin 0.4 (0.2-1.3) mg/dL AST 26 (14-36) IU/L ALT 22 (<35) IU/L Alkaline Phosphatase 90 (38-126) U/L Total Protein 8.2 (6.3-8.2) g/dL Albumin 4.6 (3.5-5.0) g/dL Globulin 3.6 (1.7-4.1) g/dL Albumin/Globulin Ratio 1.3 (1.0-2.8) Lipase 131 (23-300) U/L TSH 6.35 H (0.47-4.68) uIU/mL Serum , Qual Negative (Negative) Urine Color Yellow Urine Appearance Clear Urine pH 7.0 Normal (4.5-8.0) Ur Specific [place] <=1.005 (1.000-1.035) Urine Protein Negative (Negative) Urine Glucose (UA) Negative (Negative) g/dL Urine Ketones Negative (NEGATIVE) Urine Occult Blood 2+ H (Negative) Urine Nitrate Negative (Negative) Urine Bilirubin Negative (NEGATIVE) Urine Urobilinogen 1.0 (0.2) E.U./dL Ur Leukocyte Esterase Negative (NEGATIVE) Urine RBC 1-5/hpf (0-5/HPF) Urine WBC 0-1/hpf (0-5/HPF) Ur Squamous Epith Cells 1-5 /hpf (0-5/HPF) Urine Bacteria Few (2-10) H (None) Ur Culture Indicated? Cult not indicated Vol Urine Centrifuged 10ml (spun) U Opiates 300ng/mL cut Negative (Negative) Ur Oxycodone Screen Negative (Negative) Urine Methadone Screen Negative (Negative) Ur Barbiturates Screen Negative (Negative) U Tricyclic Antidepress Negative (Negative) Ur Phencyclidine Scrn Negative (Negative) Ur Amphetamines Screen Negative (Negative) U Methamphetamines Scrn Negative (Negative) Ur MDMA Scrn (Ecstasy) Negative (Negative) U Benzodiazepines Scrn Negative (Negative) Urine Cocaine Screen Negative (Negative) U Marijuana (THC) Screen Negative (Negative) Urine Specific [place] Normal (Normal) Ethyl Alcohol < 10 ( - 10) mg/dL Ur Creatinine Normal (Normal) SARS-CoV-2 (PCR) Negative (Negative) Point of Care Testing Test Results Negative MDM Narrative Medical decision making narrative: Patient was alert and oriented. Is still feeling suicidal but not as intense as yesterday. States that they do not feel safe at home. Patient was medically cleared. Has been seen by social work. Will attempt to find placement for voluntary referral. Patient has been seen by social work. Is voluntary. Is medically cleared. Has been accepted to [facility]. Patient was stable for transport. Discharge Plan Departure Patient Disposition: Xfer Psychiatric Hosp Clinical Impression: Suicidal ideation Prescriptions: No Action levothyroxine 137 mcg tablet 137 mcg PO DAILY Qty: 90 3RF methylphenidate HCl [Concerta] 18 mg tablet extended release 24hr 18 mg PO DAILY Qty: 30 0RF Hold Instructions: Home Medication placed on hold at Doctor's office Rx Instructions: rx 1/3 methylphenidate HCl [Concerta] 18 mg tablet extended release 24hr 18 mg PO DAILY Qty: 30 0RF Hold Instructions: Home Medication placed on hold at Doctor's office Rx Instructions: rx 2/3 methylphenidate HCl [Concerta] 18 mg tablet extended release 24hr 18 mg PO DAILY Qty: 30 0RF Hold Instructions: Home Medication placed on hold at Doctor's office Rx Instructions: rx 3/3 venlafaxine [Effexor XR] 75 mg capsule,extended release 24hr 75 mg PO DAILY Qty: 90 3RF Hold Instructions: Home Medication placed on hold at Doctor's office Rx Instructions: 225 mg total/day venlafaxine [Effexor XR] 150 mg capsule,extended release 24hr 150 mg PO DAILY Qty: 90 3RF metformin 500 mg tablet extended release 24 hr 500 mg PO DAILY Qty: 60 11RF Kyleena 17.5 mcg/24 hr (5 yrs) 19.5 mg intrauterine device intrauterine Patient Comments: exp jun 2025 aripiprazole [Abilify] 2 mg tablet 2 mg PO DAILY Qty: 30 11RF hydroxyzine HCl 10 mg tablet 10 mg PO QID PRN (Reason: anxiety) Qty: 120 11RF Referrals: Sun Patel DO [Primary Care Provider] -
[2024-05-01 12:24] LABS: COVID19 -Nasal RAPID Negative (Negative)
[2024-05-01 12:29] LABS: Alanine Aminotransferase 22 IU/L (<35); Albumin 4.6 g/dL (3.5-5.0); Albumin Globulin Ratio 1.3 (1.0-2.8); Alkaline Phosphatase 90 U/L (38-126); Aspartate Aminotransferase 26 IU/L (14-36); BUN Creatinine Ratio 14.1 (6-22); Bilirubin Total 0.4 mg/dL (0.2-1.3); Blood Urea Nitrogen 9 mg/dL (7-17); Calcium 9.3 mg/dL (8.4-10.2); Carbon Dioxide 23 mmol/L (22-32); Chloride 106 mmol/L (98-107); Estimated Glomerular Filt Rate > 60 mL/min (>60); Ethanol (ETOH) < 10 mg/dL; Globulin 3.6 g/dL (1.7-4.1); Glucose 113 mg/dL (70-100); HEMOLYSIS < 15 (0-50); Lipase 131 U/L (23-300); Potassium 3.7 mmol/L (3.4-5.1); Sodium 139 mmol/L (137-145); Total Protein 8.2 g/dL (6.3-8.2)
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
[2024-05-01 12:49] LABS: Pregnancy Test Serum,Qual Negative (Negative)
[2024-05-01 13:24] LABS: Thyroid Stimulating Hormone 6.35 uIU/mL (0.47-4.68)
--- NOTE | 2024-05-01 14:52 | CM.SWNOTE ---
ED ASSET SPECIALIST Note ASSET SPECIALIST calls [facility], it is reported that they have beds and can review patient. ASSET SPECIALIST faxes clinicals for review. Isha at [facility] calls and asks patient to fill out voluntary agreement form, patient signs and ASSET SPECIALIST faxes this back. It is reported that patient is accepted, accepting provider is Dr. Brown, arrival time is any time. Nurse to Nurse Ph. # [phone] to Lizeth. ASSET SPECIALIST calls [facility] and sets up transport for 1515, ASSET SPECIALIST calls [facility] regarding this transport time. With patient consent, ASSET SPECIALIST informs Dr. Patel's and Dr. Brooke's office of patient's transfer to [facility] for hospitalization. Plan: patient to transfer to [facility] for inpatient hospitalization this afternoon via BLS. Lizabeth Faye, TEMP RECRUITER
[2024-05-01 14:56] VITALS: BP 128/72; PULSE 101; RESP 16; TEMP 36.9; O2SAT 98
== END 2024-05-01 15:15 ==
PROVIDERS: Emergency Provider Emergency Medicine; PCP Family Medicine
DX: R45.851 Suicidal ideations (principal)
CPT/HCPCS: 36415; 80053; 80305; 80320; 81001; 81025; 83690; 84443; 84703; 85025; 87635; 99284

== ENCOUNTER 2024-06-22 18:42 | Emergency (ER) | payer OTHER, SELFPAY ==
[2024-06-22 18:46] VITALS: BP 135/76; PULSE 107; RESP 22; TEMP 36.1; O2SAT 99; BMI 38.2
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
[2024-06-22] MEDS: LORazepam 0.5 MG TABLET PO (21:36)
[2024-06-22 21:47] LABS: Add Manual Diff / Slide Review NO; Basophils Absolute Auto 0 /uL (0-100); Basophils Percent Auto 0.4 % (0-2); Eosinophils Absolute Auto 0 /uL (0-450); Eosinophils Percent Auto 0.1 % (2-4); Hematocrit 37.3 % (36-46); Hemoglobin 12.4 g/dL (12.0-16.0); Lymphocytes Absolute Auto 3700 /uL (1100-4500); Lymphocytes Percent Auto 36.4 % (25-40); Mean Corpuscular HGB Conc 33.2 % (30-36); Mean Corpuscular Hemoglobin 27.6 PG (26-34); Monocytes Absolute Auto 600 /uL (0-900); Monocytes Percent Auto 5.5 % (3-14); Neutrophils Absolute Auto 5800 /uL (1500-7000); Neutrophils Percent Auto 57.6 % (50-75); Platelet Count 384 X10^3/uL (150-400); Red Blood Cell Count 4.49 X10^6/uL (4.0-5.2); Red Cell Distribution Width 14.1 % (11.6-14.8); White Blood Cell Count 10.1 X10^3/uL (4.5-11.0)
[2024-06-22 22:00] LABS: Acetaminophen < 10 ug/mL (10-30); Alanine Aminotransferase 20 IU/L (<35); Albumin 4.2 g/dL (3.5-5.0); Albumin Globulin Ratio 1.3 (1.0-2.8); Alkaline Phosphatase 60 U/L (38-126); Aspartate Aminotransferase 23 IU/L (14-36); Blood Urea Nitrogen 14 mg/dL (7-17); Calcium 9.7 mg/dL (8.4-10.2); Carbon Dioxide 25 mmol/L (22-32); Chloride 104 mmol/L (98-107); Estimated Glomerular Filt Rate > 60 mL/min (>60); Ethanol (ETOH) < 10 mg/dL; Globulin 3.2 g/dL (1.7-4.1); Glucose 105 mg/dL (70-100); HEMOLYSIS < 15 (0-50); Potassium 3.6 mmol/L (3.4-5.1); Salicylate < 1.0 mg/dL (<20); Sodium 138 mmol/L (137-145); Total Protein 7.4 g/dL (6.3-8.2)
[2024-06-22 22:02] LABS: Bilirubin Total < 0.1 mg/dL (0.2-1.3)
[2024-06-22 22:36] LABS: Thyroid Stimulating Hormone 11.2 uIU/mL (0.47-4.68)
== END 2024-06-22 22:04 | disposition home or self-care (01) ==
PROVIDERS: Emergency Provider Emergency Medicine; PCP Family Medicine
DX: F41.0 Panic disorder [episodic paroxysmal anxiety] (principal); E66.9 Obesity, unspecified; Z68.38 Body mass index [BMI] 38.0-38.9, adult; E03.9 Hypothyroidism, unspecified
CPT/HCPCS: 36415; 80053; 80320; 80329; 84443; 85025; 99284; G0480

== ENCOUNTER 2024-06-25 16:40 | Emergency (ER) | payer OTHER, SELFPAY ==
[2024-06-25 16:59] VITALS: BP 156/87; PULSE 93; RESP 24; TEMP 37.2; O2SAT 100; BMI 38.2
[2024-06-25 18:21] LABS: UR Morphine/Opiate cutoff 300 Negative (Negative); Ur Creatinine Normal (Normal); Ur Specific Gravity Normal (Normal); Urine Amphetamines Negative (Negative); Urine Barbiturates Negative (Negative); Urine Benzodiazepines Negative (Negative); Urine Cocaine Negative (Negative); Urine MDMA Negative (Negative); Urine Methadone Negative (Negative); Urine Methamphetamines Negative (Negative); Urine Oxycodone Negative (Negative); Urine Phencyclidine Negative (Negative); Urine Tetrahydrocannabinol Negative (Negative); Urine Tricyclic Antidepressant Negative (Negative); Urine pH Normal (Normal)
[2024-06-25 18:31] LABS: Add Manual Diff / Slide Review NO; Basophils Absolute Auto 0 /uL (0-100); Basophils Percent Auto 0.3 % (0-2); Eosinophils Absolute Auto 0 /uL (0-450); Hemoglobin 12.2 g/dL (12.0-16.0); Lymphocytes Absolute Auto 2900 /uL (1100-4500); Lymphocytes Percent Auto 30.6 % (25-40); Mean Corpuscular HGB Conc 33.1 % (30-36); Mean Corpuscular Hemoglobin 27.6 PG (26-34); Mean Corpuscular Volume 83.5 fL (80-100); Monocytes Absolute Auto 400 /uL (0-900); Monocytes Percent Auto 4.7 % (3-14); Neutrophils Absolute Auto 6100 /uL (1500-7000); Neutrophils Percent Auto 64.4 % (50-75); Platelet Count 363 X10^3/uL (150-400); Red Blood Cell Count 4.43 X10^6/uL (4.0-5.2); Red Cell Distribution Width 14.5 % (11.6-14.8); White Blood Cell Count 9.4 X10^3/uL (4.5-11.0)
[2024-06-25 18:42] LABS: Acetaminophen < 10 ug/mL (10-30); Alanine Aminotransferase 19 IU/L (<35); Albumin 4.2 g/dL (3.5-5.0); Albumin Globulin Ratio 1.3 (1.0-2.8); Alkaline Phosphatase 62 U/L (38-126); Aspartate Aminotransferase 23 IU/L (14-36); BUN Creatinine Ratio 15.3 (6-22); Bilirubin Total 0.1 mg/dL (0.2-1.3); Blood Urea Nitrogen 11 mg/dL (7-17); Calcium 9.4 mg/dL (8.4-10.2); Carbon Dioxide 23 mmol/L (22-32); Chloride 106 mmol/L (98-107); Estimated Glomerular Filt Rate > 60 mL/min (>60); Ethanol (ETOH) < 10 mg/dL; Globulin 3.3 g/dL (1.7-4.1); Glucose 98 mg/dL (70-100); HEMOLYSIS < 15 (0-50); Potassium 3.4 mmol/L (3.4-5.1); Salicylate < 1.0 mg/dL (<20); Sodium 139 mmol/L (137-145); Total Protein 7.5 g/dL (6.3-8.2)
[2024-06-25 18:43] LABS: COVID19 -Nasal RAPID Negative (Negative)
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
[2024-06-25 19:08] LABS: Free T4, Direct Thyroxine 0.92 ng/dL (0.78-2.19)
--- NOTE | 2024-06-25 19:08 | PC.NURSE ---
Pts family at bedside. Pt states that she has SI and is seeking inpatient tx.
[2024-06-25 19:21] LABS: Thyroid Stimulating Hormone 8.08 uIU/mL (0.47-4.68)
[2024-06-25] MEDS: cloNIDine 0.1 MG TABLET PO (19:35)
[2024-06-25 20:27] VITALS: BP 103/68; PULSE 88; RESP 16; O2SAT 98
[2024-06-25 22:24] LABS: Pregnancy Test Urine Negative (Negative)
--- NOTE | 2024-06-26 01:55 | PC.NURSE ---
Pt given granola bar and 240 ml cranberry juice
[2024-06-26] MEDS: hydrOXYzine HCL 25 MG TABLET PO (02:02)
[2024-06-26 06:37] VITALS: BP 95/53; PULSE 74; RESP 16; TEMP 37.1; O2SAT 98
[2024-06-26] MEDS: LEVOTHYROXINE 137 MCG TABLET PO (06:40)
[2024-06-26] MEDS: ARIPiprazole 10 MG TABLET 5 MG PO (09:02)
[2024-06-26 09:07] VITALS: BP 131/68; PULSE 92; RESP 18; TEMP 37; O2SAT 100
[2024-06-26] MEDS: VENLAFAXINE ER 75 MG CAP 150 MG PO (09:07)
[2024-06-26] MEDS: METFORMIN XR 500 MG TABLET PO (09:07)
--- NOTE | 2024-06-26 09:59 | PC.NURSE ---
walking unit intermittantly with staff. Lunch order placed to dietary
--- NOTE | 2024-06-26 13:57 | CM.SWNOTE ---
Addendum entered by Lizabeth Faye 06/26/24 14:03: SODA WORKER informs [facility] of [facility]'s POC. HENRIETTA Lee Original Note: ED SODA WORKER Note SODA WORKER calls [facility] again, it is reported that they are still reviewing and uncertain about ETA. SODA WORKER discusses this with patient and patient agrees to consider placement at [facility]. SODA WORKER calls [facility] and it is reported that they have beds and can review patient. SODA WORKER faxes clinicals for review. [facility] calls and asks for urine preg results and states they can accept patient if they fill out voluntary agreement form. SODA WORKER faxes these forms to [facility]. It is reported that patient is accepted at [facility] for voluntary inpatient placement at arrival ETA of 1600. Accepting provider is Dr. Rahel Figueroa MD, intake William. RN to RN: [phone]. SODA WORKER sets up BLS transport with [facility], ETA is 1430. SODA WORKER informs [facility] of this. Patient endorses agreement and understanding to plan. SODA WORKER informs patient's [facility] outpatient team regarding patient's disposition. Plan: patient to transfer to [facility] for voluntary inpatient hospitalization via BLS this afternoon. HENRIETTA Lee
[2024-06-26 14:22] VITALS: BP 135/73; PULSE 98; RESP 18; TEMP 36.6; O2SAT 100
--- NOTE | 2024-06-26 14:27 | PC.NURSE ---
HIGH RISK, voluntary - Accepted @ [facility] Intake- William, Accepting provider: Dr. Rahel Figueroa RN to RN [phone] report given to William @ 7048
== END 2024-06-26 14:40 ==
PROVIDERS: Emergency Medicine; Student in an Organized Health Care Education/Training Program; Emergency Provider Emergency Medicine; PCP Family Medicine
DX: R45.851 Suicidal ideations (principal)
CPT/HCPCS: 36415; 80053; 80305; 80320; 80329; 81003; 81025; 84439; 84443; 85025; 87635; 99284; A9270; G0480

== ENCOUNTER 2024-07-28 19:28 | Emergency (ER) | payer OTHER, SELFPAY ==
[2024-07-28 19:36] VITALS: BP 129/77; PULSE 107; RESP 28; TEMP 36.8; O2SAT 100; BMI 38.0
--- NOTE | 2024-07-28 20:10 | PC.NURSE ---
pt changed into paper scrubs provided to them. pt belongings were put in a belonging bag with pt label attached to bag and placed in locked belongings cabinet at nurses station. Warm blankets provided to pt at this time
[2024-07-28 20:23] LABS: UR Morphine/Opiate cutoff 300 Negative (Negative); Ur Creatinine Normal (Normal); Ur Specific Gravity Normal (Normal); Urine Amphetamines Negative (Negative); Urine Barbiturates Negative (Negative); Urine Benzodiazepines Negative (Negative); Urine Cocaine Negative (Negative); Urine MDMA Negative (Negative); Urine Methadone Negative (Negative); Urine Methamphetamines Negative (Negative); Urine Oxycodone Negative (Negative); Urine Phencyclidine Negative (Negative); Urine Tetrahydrocannabinol Negative (Negative); Urine Tricyclic Antidepressant Negative (Negative); Urine pH Normal (Normal)
[2024-07-28 20:27] LABS: Bacteria Urine Occasional (0-1); Culture Indicated Urine Cult Not Indicated; RBC Urine 1-5/HPF (0-5/HPF); Squamous Epithelial Cell Urine 0-1 /HPF (0-5/HPF); Urine Volume 10mL (spun); WBC Urine 0-1/HPF (0-5/HPF)
[2024-07-28 20:35] LABS: Add Manual Diff / Slide Review NO; Basophils Absolute Auto 100 /uL (0-100); Basophils Percent Auto 0.6 % (0-2); Eosinophils Absolute Auto 0 /uL (0-450); Eosinophils Percent Auto 0.1 % (2-4); Hemoglobin 12.3 g/dL (12.0-16.0); Lymphocytes Absolute Auto 3000 /uL (1100-4500); Lymphocytes Percent Auto 33.6 % (25-40); Mean Corpuscular HGB Conc 33.3 % (30-36); Mean Corpuscular Hemoglobin 27.5 PG (26-34); Mean Corpuscular Volume 82.5 fL (80-100); Monocytes Absolute Auto 500 /uL (0-900); Monocytes Percent Auto 5.8 % (3-14); Neutrophils Absolute Auto 5400 /uL (1500-7000); Neutrophils Percent Auto 59.9 % (50-75); Platelet Count 378 X10^3/uL (150-400); Red Blood Cell Count 4.48 X10^6/uL (4.0-5.2); Red Cell Distribution Width 13.8 % (11.6-14.8); White Blood Cell Count 9.1 X10^3/uL (4.5-11.0)
[2024-07-28 20:47] LABS: Acetaminophen < 10 ug/mL (10-30); Alanine Aminotransferase 18 IU/L (<35); Albumin 4.4 g/dL (3.5-5.0); Albumin Globulin Ratio 1.3 (1.0-2.8); Alkaline Phosphatase 70 U/L (38-126); Aspartate Aminotransferase 22 IU/L (14-36); BUN Creatinine Ratio 29.2 (6-22); Bilirubin Total 0.2 mg/dL (0.2-1.3); Blood Urea Nitrogen 21 mg/dL (7-17); Calcium 9.7 mg/dL (8.4-10.2); Carbon Dioxide 23 mmol/L (22-32); Chloride 105 mmol/L (98-107); Estimated Glomerular Filt Rate > 60 mL/min (>60); Ethanol (ETOH) < 10 mg/dL; Globulin 3.3 g/dL (1.7-4.1); Glucose 100 mg/dL (70-100); HEMOLYSIS < 15 (0-50); Potassium 3.9 mmol/L (3.4-5.1); Salicylate < 1.0 mg/dL (<20); Sodium 137 mmol/L (137-145); Total Protein 7.7 g/dL (6.3-8.2)
[2024-07-28 21:14] LABS: Free T4, Direct Thyroxine 1.21 ng/dL (0.78-2.19)
[2024-07-28 21:28] LABS: Thyroid Stimulating Hormone 2.55 uIU/mL (0.47-4.68)
[2024-07-28 21:28] LABS: COVID19 -Nasal RAPID Negative (Negative)
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
--- NOTE | 2024-07-28 21:58 | PC.NURSE ---
Dr. Castanon at bedside
[2024-07-28] MEDS: cloNIDine 0.1 MG TABLET PO (22:36)
--- NOTE | 2024-07-29 00:35 | PC.NURSE ---
Addendum entered by Aleyda Frederick CNA 07/29/24 04:44: JERALD note: Patient was accepted at [facility] at 0435. Spoke with Arpita. Patient's admitting provider Jordin HENDRICKS. Arpita wanted the patient to be at the facility at 0830 or later. Thanked Arpita and arranged transport from [facility]. Addendum entered by Aleyda Frederick CNA 07/29/24 04:05: JERALD note: Spoke to Meet at [facility] at 0349. They said they could possibly take the patient. Faxed over chart. Addendum entered by Aleyda Frederick CNA 07/29/24 01:43: JERALD noteL Spoke to Meet at [facility] at 0140. Patient should be admitted in the morning, given their history it would a fast track admit... and right up our alley. But Meet will bring it up to the doctor in the morning first thing. They don't take admissions in the night he said. Thanked him. Relied the information to Dr. Castanon. Original Note: JERALD note: Called [facility] at 0012. Spoke to Racheal. Earline told me the intake person is on break, but they did receive the packet we sent. Thanked them for their help.
--- NOTE | 2024-07-29 06:07 | PC.NURSE ---
Updated patient's mother- Glo- about pt transferring to [facility].
[2024-07-29 06:52] VITALS: BP 147/60; PULSE 65; RESP 18; TEMP 36.7; O2SAT 99
--- NOTE | 2024-07-29 07:05 | PC.NURSE ---
Report given to JO-ANN Golden at [facility] .
== END 2024-07-29 07:30 ==
PROVIDERS: Emergency Provider Emergency Medicine; PCP Family Medicine
DX: R45.851 Suicidal ideations (principal); F41.9 Anxiety disorder, unspecified; Z11.52 Encounter for screening for COVID-19
CPT/HCPCS: 80053; 80305; 80320; 80329; 81003; 81015; 81025; 84439; 84443; 85025; 87635; 99283; 99284; G0480

== ENCOUNTER 2024-08-22 11:09 | Emergency (ER) | payer OTHER, SELFPAY ==
[2024-08-22 11:32] VITALS: BP 126/80; PULSE 80; RESP 20; TEMP 37.1; O2SAT 100; BMI 38.6
--- NOTE | 2024-08-22 11:49 | PC.NURSE ---
patient belongings (clothing,waterbotte,shoes,backpack) labeled and placed in patient belonging bags placed under the locked cabinet by SECONDS HANDLER desk.
[2024-08-22 12:14] LABS: Add Manual Diff / Slide Review NO; Basophils Absolute Auto 0 /uL (0-100); Basophils Percent Auto 0.2 % (0-2); Eosinophils Absolute Auto 0 /uL (0-450); Eosinophils Percent Auto 0.1 % (2-4); Hematocrit 35.6 % (36-46); Hemoglobin 12.3 g/dL (12.0-16.0); Lymphocytes Absolute Auto 2500 /uL (1100-4500); Mean Corpuscular HGB Conc 34.5 % (30-36); Mean Corpuscular Hemoglobin 28.1 PG (26-34); Mean Corpuscular Volume 81.5 fL (80-100); Monocytes Absolute Auto 600 /uL (0-900); Monocytes Percent Auto 7.4 % (3-14); Neutrophils Absolute Auto 5000 /uL (1500-7000); Neutrophils Percent Auto 61.3 % (50-75); Platelet Count 414 X10^3/uL (150-400); Red Blood Cell Count 4.37 X10^6/uL (4.0-5.2); White Blood Cell Count 8.2 X10^3/uL (4.5-11.0)
[2024-08-22 12:29] LABS: COVID19 -Nasal RAPID Negative (Negative)
[2024-08-22 12:32] LABS: Acetaminophen < 10 ug/mL (10-30); Alanine Aminotransferase 23 IU/L (<35); Albumin 4.3 g/dL (3.5-5.0); Albumin Globulin Ratio 1.4 (1.0-2.8); Alkaline Phosphatase 71 U/L (38-126); Aspartate Aminotransferase 30 IU/L (14-36); BUN Creatinine Ratio 19.4 (6-22); Bilirubin Total 0.4 mg/dL (0.2-1.3); Blood Urea Nitrogen 12 mg/dL (7-17); Calcium 9.2 mg/dL (8.4-10.2); Carbon Dioxide 25 mmol/L (22-32); Chloride 102 mmol/L (98-107); Estimated Glomerular Filt Rate > 60 mL/min (>60); Ethanol (ETOH) < 10 mg/dL; Glucose 97 mg/dL (70-100); HEMOLYSIS < 15 (0-50); Potassium 3.8 mmol/L (3.4-5.1); Salicylate < 1.0 mg/dL (<20); Sodium 136 mmol/L (137-145); Total Protein 7.3 g/dL (6.3-8.2)
[2024-08-22 12:48] LABS: Ictotest Urine Negative (Negative)
[2024-08-22 12:48] LABS: Free T4, Direct Thyroxine 1.25 ng/dL (0.78-2.19)
[2024-08-22 12:49] LABS: Ur Creatinine Normal (Normal); Ur Specific Gravity Normal (Normal); Urine Amphetamines Negative (Negative); Urine Barbiturates Negative (Negative); Urine Benzodiazepines Negative (Negative); Urine Cocaine Negative (Negative); Urine MDMA Negative (Negative); Urine Methadone Negative (Negative); Urine Methamphetamines Negative (Negative); Urine Opiates Negative (Negative); Urine Oxycodone Negative (Negative); Urine Phencyclidine Negative (Negative); Urine THC Negative (Negative); Urine Tricyclic Antidepressant Negative (Negative); Urine Volume 10mL (spun); Urine pH Normal (Normal)
[2024-08-22 12:50] LABS: Bacteria Urine None Seen; Culture Indicated Urine Specimen Cultured; RBC Urine None Seen (0-5/HPF); Squamous Epithelial Cell Urine None Seen (0-5/HPF); WBC Urine 5-10/HPF (0-5/HPF)
[2024-08-22 13:02] LABS: Thyroid Stimulating Hormone 1.16 uIU/mL (0.47-4.68)
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
--- NOTE | 2024-08-22 13:53 | ED.PSYCH ---
HPI - Psych General Chief Complaint: Psychiatric Symptoms Stated Complaint: S/I, anxiety and depression Time Seen by Provider: 08/22/24 13:53 History of Present Illness HPI Narrative: 33-year-old female history of anxiety depression presents with suicidal ideation wanting to kill herself using a knife. She has attempted in the past trying to cut her wrist on the right side. She denies hearing voices or seeing things. She has been taking all her medications as directed other than what is stated 14 point review of system is negative. Mother is at the bedside with the patient at this time Related Data Home Medications Medication Instructions Recorded Confirmed levonorgestrel 17.5 mcg/24 hr (up intrauterine 04/04/24 07/14/24 to 5 yrs) 19.5mg intrauterine device (Kyleena) Previous Rx's Medication Instructions Recorded venlafaxine 150 mg 150 mg PO DAILY #90 caps 11/13/23 capsule,extended release 24 hr (Effexor XR) hydroxyzine HCl 10 mg tablet 10 mg PO QID PRN anxiety #120 tabs 02/22/24 metformin 500 mg tablet,extended 500 mg PO DAILY #60 tabs 02/29/24 release 24 hr levothyroxine 150 mcg capsule 150 mcg PO DAILY #90 caps 07/03/24 propranolol 10 mg tablet 10 mg PO TID PRN anxiety #90 tabs 08/13/24 guanfacine 1 mg tablet,extended 1 mg PO QPM #30 tabs 08/20/24 release 24 hr Allergies Allergy/AdvReac Type Severity Reaction Status Date / Time drospirenone [From IGLESIA (28)] Allergy Unknown Verified 07/14/24 09:46 ethinyl estradiol Allergy Unknown Verified 07/14/24 09:46 [From IGLESIA (28)] Review of Systems Review of Systems ROS Unobtainable: All systems reviewed & are unremarkable except as noted in HPI and below Patient History Medical History Attention deficit disorder without hyperactivity (05/09/11) Autistic behavior Trauma and stressor-related disorder GHULAM (generalized anxiety disorder) Major depression, recurrent IUD check up Abnormal uterine bleeding (AUB) Pulmonary nodule Dysmenorrhea Menorrhagia Abdominal bloating IFG (impaired fasting glucose) Microcytic anemia Obesity (BMI 35.0-39.9 without comorbidity) Depression Hypothyroidism Surgical History Hx of colonoscopy (02/27/23) Social History marital status: unmarried,single household members: friend(s) and none lives independently: Yes occupational status: employed Smoking Status: Never smoker alcohol intake: never substance use type: does not use Smoking Status: Never smoker Exam Narrative Exam Narrative: GENERAL: [33] year old patient appears stated age. Well-developed patient, in mild distress. HEAD: Atraumatic. Normocephalic. EYES: Pupils equal round and reactive. Extraocular motions intact. No scleral icterus. No injection or drainage. ENT: Nose without bleeding, purulent drainage. Throat without erythema, tonsillar hypertrophy or exudate. Airway patent. NECK: Trachea midline. Non tender CARDIOVASCULAR: Regular rate and rhythm without murmurs, gallops, or rubs. RESPIRATORY: Clear to auscultation. Breath sounds equal bilaterally. No wheezes, rales, or rhonchi. GASTROINTESTINAL: Abdomen soft, non-tender, nondistended. EXTREMITIES: No edema or joint tenderness. BACK: Nontender without deformity or crepitance. No flank tenderness. NEURO: AOx3. SKIN: No rash or erythema of visible areas Psych: Depressed, Anxious, Suicidial Ideation, good eye contact, concentration intact, judgement impaired Initial Vital Signs Initial Vital Signs: Vital Signs Temperature 98.7 F 08/22/24 11:32 Pulse Rate 80 08/22/24 11:32 Respiratory Rate 20 08/22/24 11:32 Blood Pressure 126/80 08/22/24 11:32 Pulse Oximetry 100 08/22/24 11:32 Oxygen Delivery Method Room Air 08/22/24 11:32 Course Orders Ordered: ED Orders 08/22/24 11:39 Consult to [facility] [place] [employer] Stat 08/22/24 11:52 COVID19 -Nasal RAPID Stat 08/22/24 12:02 Acetaminophen Stat Complete Blood Count AUTO DIFF Stat Comprehensive Metabolic Panel Stat Ethanol (ETOH) Stat Free T4, Direct Thyroxine Stat Salicylate Stat Thyroid Stimulating Hormone Stat 08/22/24 12:32 Ictotest Urine Stat Urine Culture Stat Urine Drug Screen, Rapid Stat Urine Microscopic Stat 08/22/24 14:49 Consult to [facility] [place] - [employer] Stat Vital Signs Vital signs: Vital Signs - 8 hr 08/22/24 11:32 08/22/24 15:17 Temperature 98.7 F 98.1 F Pulse Rate 80 92 H Respiratory Rate 20 17 Blood Pressure 126/80 106/71 Pulse Oximetry 100 100 Oxygen Delivery Method Room Air Room Air MDM - Psych Lab Data 08/22/24 12:02 08/22/24 12:02 Labs: Lab Results 08/22/24 08/22/24 08/22/24 Range/Units 11:52 12:02 12:32 WBC 8.2 (4.5-11.0) X10^3/uL RBC 4.37 (4.0-5.2) X10^6/uL Hgb 12.3 (12.0-16.0) g/dL Hct 35.6 L (36-46) % MCV 81.5 (80-100) fL MCH 28.1 (26-34) PG MCHC 34.5 (30-36) % RDW 14.0 (11.6-14.8) % Plt Count 414 H (150-400) X10^3/uL Neut % (Auto) 61.3 (50-75) % Lymph % (Auto) 31.0 (25-40) % [place] % (Auto) 7.4 (3-14) % Eos % (Auto) 0.1 L (2-4) % Baso % (Auto) 0.2 (0-2) % Neut # (Auto) 5000 (4121-2737) /uL Lymph # (Auto) 2500 (0829-6870) /uL [facility] # (Auto) 600 (0-900) /uL Eos # (Auto) 0 (0-450) /uL Baso # (Auto) 0 (0-100) /uL Sodium 136 L (137-145) mmol/L Potassium 3.8 (3.4-5.1) mmol/L Chloride 102 (98-107) mmol/L Carbon Dioxide 25 (22-32) mmol/L BUN 12 (7-17) mg/dL Creatinine 0.62 (0.52-1.04) mg/dL Estimated GFR > 60 (>60) mL/min BUN/Creatinine Ratio 19.4 (6-22) Glucose 97 (70-100) mg/dL Calcium 9.2 (8.4-10.2) mg/dL Total Bilirubin 0.4 (0.2-1.3) mg/dL AST 30 (14-36) IU/L ALT 23 (<35) IU/L Alkaline Phosphatase 71 (38-126) U/L Total Protein 7.3 (6.3-8.2) g/dL Albumin 4.3 (3.5-5.0) g/dL Globulin 3.0 (1.7-4.1) g/dL Albumin/Globulin Ratio 1.4 (1.0-2.8) TSH 1.16 (0.47-4.68) uIU/mL Free T4 1.25 (0.78-2.19) ng/dL Ur Bilirubin Confirm Negative (Negative) Urine RBC None seen (0-5/HPF) Urine WBC 5-10/hpf H (0-5/HPF) Ur Squamous Epith Cells None seen (0-5/HPF) Urine Bacteria None seen (None) Ur Culture Indicated? Specimen cultured Vol Urine Centrifuged 10ml (spun) Salicylates < 1.0 (<20) mg/dL U Opiates 300ng/mL cut Negative (Negative) Ur Oxycodone Screen Negative (Negative) Urine Methadone Screen Negative (Negative) Acetaminophen < 10 (10-30) ug/mL Ur Barbiturates Screen Negative (Negative) U Tricyclic Antidepress Negative (Negative) Ur Phencyclidine Scrn Negative (Negative) Ur Amphetamines Screen Negative (Negative) U Methamphetamines Scrn Negative (Negative) Ur MDMA Scrn (Ecstasy) Negative (Negative) U Benzodiazepines Scrn Negative (Negative) Urine Cocaine Screen Negative (Negative) U Marijuana (THC) Screen Negative (Negative) Urine pH Normal (Normal) Urine Specific [place] Normal (Normal) Ethyl Alcohol < 10 ( - 10) mg/dL Ur Creatinine Normal (Normal) SARS-CoV-2 (PCR) Negative (Negative) Point of Care Testing Test Results Negative Urine Dip Bedside Urine Glucose Negative Bedside Urine Bilirubin + 1 Bedside Urine Ketone - Negative Urine Specific [place] 1.015 Bedside Urine Occult Blood - Negative Bedside Urine pH 6.0 Bedside Urine Protein - Negative Bedside Urine Urobilinogen - Negative Bedside Urine Nitrite - Negative Bedside Urine Leukocytes +++ 500 Esterase MDM Narrative Medical decision making narrative: All lab work reviewed, vital signs nurse triage note medication list previous ER visits have also been all reviewed. Patient is medically stable for transfer to to [facility] for admission to inpatient service differential diagnosis includes suicidal ideation, anxiety, depression, stress disorder. Discharge Plan Departure Patient Disposition: Xfer Psychiatric Hosp Clinical Impression: Depression with suicidal ideation Prescriptions: No Action guanfacine 1 mg tablet extended release 24 hr 1 mg PO QPM Qty: 30 2RF propranolol 10 mg tablet 10 mg PO TID PRN (Reason: anxiety) Qty: 90 0RF venlafaxine [Effexor XR] 150 mg capsule,extended release 24hr 150 mg PO DAILY Qty: 90 3RF Hold Instructions: not taking currently metformin 500 mg tablet extended release 24 hr 500 mg PO DAILY Qty: 60 11RF Kyleena 17.5 mcg/24 hr (5 yrs) 19.5 mg intrauterine device intrauterine Patient Comments: exp jun 2025 hydroxyzine HCl 10 mg tablet 10 mg PO QID PRN (Reason: anxiety) Qty: 120 11RF levothyroxine 150 mcg capsule 150 mcg PO DAILY Qty: 90 3RF Referrals: Sun Patel DO [Primary Care Provider] -
[2024-08-22 15:17] VITALS: BP 106/71; PULSE 92; RESP 17; TEMP 36.7; O2SAT 100
--- NOTE | 2024-08-22 17:28 | CM.SWNOTE ---
Addendum entered by Lizabeth Faye 08/22/24 18:07: UNDERGROUND PRODUCTION FOREPERSON informs patient's therapist of patient's transport to [facility] for inpatient treatment this evening. [facility] outpatient team to f/u with patient and family for follow up appts. HENRIETTA Lee Original Note: ED UNDERGROUND PRODUCTION FOREPERSON Note UNDERGROUND PRODUCTION FOREPERSON calls [facility], it is reported that they may have beds and can review patient. UNDERGROUND PRODUCTION FOREPERSON faxes clinicals for review. UNDERGROUND PRODUCTION FOREPERSON calls [facility] per patient secondary preference, it is reported that they have beds and can review patient. UNDERGROUND PRODUCTION FOREPERSON faxes clinicals for review. Stacie at [facility] calls to complete phone screening for patient, patient and intake state that phone call went well and they just need to review patient's insurance and fax screening forms for patient to complete. UNDERGROUND PRODUCTION FOREPERSON faxes back forms. Intake at [facility] calls to report concern for high acuity on the unit and states that patient will have to have a roommate and is not sure if the unit is appropriate for patient. UNDERGROUND PRODUCTION FOREPERSON receives call from [facility] stating that patient is accepted by Ignacio Hoyos NP for soonest available time. RN-RN is [phone]. UNDERGROUND PRODUCTION FOREPERSON calls [facility] and it is reported that they can arrive at 1935, UNDERGROUND PRODUCTION FOREPERSON calls [facility] and it is reported that they can arrive at 1830, UNDERGROUND PRODUCTION FOREPERSON secures transport with [facility]. Patient indicates agreement and understanding. Plan: patient to transfer to [facility] via BLS this evening for voluntary inpatient hospitalization. HENRIETTA Lee
[2024-08-22 18:29] VITALS: BP 115/63; PULSE 88; RESP 14; TEMP 36.8; O2SAT 98
== END 2024-08-22 19:00 ==
PROVIDERS: Emergency Provider Family Medicine; PCP Family Medicine
DX: R45.851 Suicidal ideations (principal); F32.A Depression, unspecified
CPT/HCPCS: 36415; 80053; 80305; 80320; 80329; 81003; 81015; 81025; 84439; 84443; 85025; 87077; 87086; 87147; 87635; 99284; G0480

== ENCOUNTER → 2024-08-28 09:10 | Outpatient (CLI) | payer OTHER, SELFPAY ==
[2024-08-28 10:39] LABS: Cholesterol 264 mg/dL (140-199); HDL Cholesterol 34 mg/dL (40-60); LDL Cholesterol Calculated 206 mg/dL (<100); Triglycerides 121 mg/dL (35-150)
[2024-08-28 11:09] LABS: TSH w/ Reflex to FT4 1.65 uIU/mL (0.47-4.68)
== END ==
PROVIDERS: Student in an Organized Health Care Education/Training Program; PCP Family Medicine; Referring Provider Family Medicine; Visit Provider Family Medicine
DX: Z51.81 Encounter for therapeutic drug level monitoring (principal); E03.9 Hypothyroidism, unspecified; R73.01 Impaired fasting glucose
CPT/HCPCS: 36415; 80061; 83036; 84443

== ENCOUNTER → 2024-12-22 08:45 | Outpatient (CLI) | payer OTHER, SELFPAY ==
[2024-12-22 10:09] LABS: Cholesterol 100 mg/dL (140-199); HDL Cholesterol 32 mg/dL (40-60); Triglycerides 96 mg/dL (35-150)
== END ==
PROVIDERS: PCP Family Medicine; Referring Provider Family Medicine; Visit Provider Family Medicine
DX: E78.5 Hyperlipidemia, unspecified (principal); R73.01 Impaired fasting glucose; E66.9 Obesity, unspecified
CPT/HCPCS: 36415; 80061

== ENCOUNTER → 2025-03-18 11:21 | Outpatient (CLI) | payer OTHER, SELFPAY ==
[2025-03-18 12:04] LABS: Hemoglobin A1C% w Est Avg Glu 5.4 % (4.0-6.0)
[2025-03-18 12:43] LABS: TSH w/ Reflex to FT4 < 0.02 uIU/mL (0.47-4.68)
[2025-03-18 13:08] LABS: Free T4, Direct Thyroxine 1.74 ng/dL (0.78-2.19)
== END ==
PROVIDERS: PCP Family Medicine; Referring Provider Family Medicine; Visit Provider Family Medicine
DX: R73.01 Impaired fasting glucose (principal); E03.9 Hypothyroidism, unspecified
CPT/HCPCS: 36415; 83036; 84439; 84443

== ENCOUNTER → 2025-04-15 13:46 | Outpatient (CLI) | payer OTHER, SELFPAY ==
--- NOTE | 2025-04-15 15:46 | DIET.OUTPTC ---
Dietary Outpatient Consult Consult Date:04/15/25 Assessment:? 34 y F referred to dietitian for obesity, BMI 35-40, impaired fasting glucose Pt reports ready to make nutrition changes for healthier eating. Biggest troubles are eating cheeseburgers from [employer] and not eating enough fruits and vegs (troubles with texture of softer veg - kiwi, bananas, etc- ok w crisper vegs and fruits e.g. carrots, peppers, apple slices) Notes eating some meals within 5 minutes and having difficulty swallowing food and then spitting it out. GI symptoms: some symptoms of lactose intolerance when drinking too much milk- D. Denies N/V/C. BM daily or every other day. Diet Recall: [id number]-rice crispees w milk OR hardboiled egg and chocolate milk L-12-1pm- top ramen OR chk wrap (fried chk form [employer]+cheese+flour tortilla+lettuce+olives+ranch) OR leftover mac and cheese or pizza OR cereal again D-4-5p- 1 time of less per week does cheese pizza, mac and cheese boxed (stoffers), soup canned (e.g. clam chowder or tomato soup with grilled cheese), or chk wrap again 12 chocolate chips for dessert herbal tea with some sugar added sometimes dessert waffers [employer] 2-3x/wk (cheeseburger, raphael and small regular soda) Fluids:water juice, tea 03/18/2510:52 Height 4 ft 10 in Weight 179 lb 4 oz BMI 37.4 Activity:7-10k steps per day, does 1 hour walking daily, MWF does a run/walk ~45 mins Nutrition Diagnosis:? Excessive energy intake r/t intake of energy dense over nutrient dense foods, food and nutrition related knowledge deficit aeb diet recall with multiple energy dense food items multiple times per week (regular soda, fried chicken, chocolate milk, juice, mac and cheese) Interventions:? Discussed and provided appropriate resources on the following: -Myplate style of eating (fiber, whole grain, protein) -Label reading educ -Speed of eating and impact of chewing food, methods to slow intake and be conscious about chewing enough -Brainstormed food changes Goals: -When having cereal add 1 hardboiled egg, on days of chocolate milk and egg, switch to regular milk and 2 eggs -Choose non-fried chicken for wrap, use whole wheat tortilla, pair with 1/2 c carrots or melchor peppers -No ramen -Have a palm size amount of chicken/turkey/fish with mac and cheese and pizza to get protein -Switch out the grenadian fries to apple slices at [employer] -Slow down on eating, meals to take 10-15 minutes over 5 minutes Wrote goals down on list which is very beneficial for pt Monitoring/Evaluations:? F/u in 3wks Electronically Signed by: Juany Mulligan Clinical Dietitian [address] [address]
== END ==
LOC: DIET 13:47
PROVIDERS: PCP Family Medicine; Referring Provider Family Medicine
DX: E66.9 Obesity, unspecified (principal); R73.01 Impaired fasting glucose; Z71.3 Dietary counseling and surveillance; Z68.37 Body mass index [BMI] 37.0-37.9, adult
CPT/HCPCS: 97802

== ENCOUNTER → 2025-05-05 13:51 | Outpatient (CLI) | payer OTHER, SELFPAY ==
--- NOTE | 2025-05-11 14:50 | DIET.OUTPTC ---
Dietary Outpatient Consult Consult Date:05/05/25 Assessment:? 34 y F referred to dietitian for obesity, BMI 35-40, impaired fasting glucose Reviewed goals from last session. Goals: Met -When having cereal add 1 hardboiled egg, on days of chocolate milk and egg, switch to regular milk and 2 eggs Met BUT was doing leftover turkey from [employer] but now doing deli turkey regular sodium-Choose non-fried chicken for wrap, use whole wheat tortilla, pair with 1/2 c carrots or melchor peppers Met-No ramen Increased fiber content more than protein-Have a palm size amount of chicken/turkey/fish with mac and cheese and pizza to get protein Not met-Switch out the azerbaijani fries to apple slices at [employer] Met at dinner not other meals, wakes up really hungry so eats faster-Slow down on eating, meals to take 10-15 minutes over 5 minutes Pt reports has increased fiber content at dinner. Struggling with reducing fries. Diet Recall: [id number]-rice crispees w milk and hard-boiled egg OR hardboiled egg and milk L-12-1pm- chk/turkey wrap (leftover turkey/deli turkey+cheese+flour tortilla+lettuce+olives+ranch) D-4-5p- 1 time of less per week does cheese pizza, mac and cheese boxed (stoffers), soup canned (e.g. clam chowder or tomato soup with grilled cheese), or chk wrap again + additional veggies serving 12 chocolate chips for dessert herbal tea with some sugar added sometimes dessert waffers [employer] 2-3x/wk (cheeseburger, raphael and no sugar added drink) Fluids:water juice, tea 03/18/2510:52 Height 4 ft 10 in Weight 179 lb 4 oz BMI 37.4 Activity:7-10k steps per day, does 1 hour walking daily, MWF does a run/walk ~45 mins Nutrition Diagnosis:? (improving) Excessive energy intake r/t intake of energy dense over nutrient dense foods, food and nutrition related knowledge deficit aeb diet recall with multiple energy dense food items multiple times per week (regular soda, fried chicken, chocolate milk, juice, mac and cheese) Interventions:? Discussed and provided appropriate resources on the following: -Reviewed goals and barriers and problem solving -Discussed new goals and rationale goals regarding health Goals: -Reduced sodium deli meat or double batch cook chicken/turkey at beginning of week -Instead of medium fries do small fries + apple slices -Protein pasta or golden pasta instead of regular pasta -Set timer for pace of breakfast and lunch eating to avoid having to spit out food from eating too fast. Add bedtime snack if too hungry in morning. Wrote goals down on list which is very beneficial for pt Monitoring/Evaluations:? F/u in 3-4wks Electronically Signed by: Juany Mulligan Clinical Dietitian [address] [address]
== END ==
LOC: DIET 13:52
PROVIDERS: PCP Family Medicine; Referring Provider Family Medicine
DX: E66.9 Obesity, unspecified (principal); Z68.35 Body mass index [BMI] 35.0-35.9, adult; R73.01 Impaired fasting glucose; Z71.3 Dietary counseling and surveillance
CPT/HCPCS: 97803